=== PATIENT | female | born 1980 | race Caucasian/White ===

== ENCOUNTER 2020-10-18 17:19 | Emergency (ER) | payer OTHER ==
--- OUTSIDE RECORDS SUMMARY | 2020-10-18 17:22 | XMS REPORT | Continuity of Care Document ---
:1980 Author Organization [facility] t Address [address] [place] [address] Care Team Providers Name Role Phone RUPALI Attending Clinician Unavailable CHITO Attending Clinician Unavailable Rohan BRAN, M Attending Clinician Bria PAC, Judy Attending Clinician Rosalba BRYSON Attending Clinician Lab, Fam Pob I Attending Clinician Unavailable Only, Test Attending Clinician Unavailable Doctor Unassigned, Name Attending Clinician Unavailable Fahed Attending Clinician DR ALYCE Attending Clinician Unavailable DR MARY GRACE Attending Clinician Unavailable Rosalba BRYSON Admitting Clinician Fahed Admitting Clinician DR ALYCE Admitting Clinician Unavailable DR MARY GRACE Admitting Clinician Unavailable Payers Payer Name Policy Type Policy Number Effective Date Expiration Date [facility] [id number] 2020 HEALTH PLAN 00:00:00 Problems Condition Condition Condition Status Onset Resolution Last Treating Co mments Source Name Details Category Date Date Treatment Clinician Date Diabetes Problem Active 2019-12-02 Mem oria mellitus 1- 04:02:00 l (disorder) Diabetes 00:00: Edmond hubbard mellitus 00 (disorder) Active 04/27/2019 Problem 12/02/2019 [facility] Leiomyoma, Problem Active 2019-12-02 M emoria no ICD-O 1- 04:02:00 l subtype 00:00: Facundo (morpholog Leiomyoma, 00 ic no ICD-O abnormalit subtype y) (morpholog ic abnormalit y) Active 9 Problem 0 [facility] Rheumatoid Problem Active 2019-12-02 M emoria arthritis 04-27 04:02:00 l (disorder) 00:00: Harjeet n Rheumatoid 00 arthritis (disorder) Active 04/27/2018 Problem 12/02/2019 [facility] Hypertensi Problem Active 2019-12-02 M emoria ve 04-27 04:02:00 l disorder, 00:00: [place]na systemic Hypertensi 00 arterial ve (disorder) disorder, systemic arterial (disorder) Active 04/27/2015 Problem 12/02/2019 [facility] Allergy - Problem Active 2019-12-02 Me moria specialty 04:02:00 l (qualifier Allergy Her garcia value) - specialty (qualifier value) Active Problem 12/02/2019 [facility] Asthma Problem Active 2019-12-02 Memor ia (disorder) 04:02:00 l Asthma Facundo (disorder) Active Problem 12/02/2019 [facility] Low back Problem Active 2019-12-02 Mem oria pain 04:02:00 l (disorder) Low back He rmann pain (disorder) Active Problem 12/02/2019 [facility] Secondary Problem Active 2016-02-20 Me moria amenorrhea 02:48:07 l [place]na Secondary amenorrhea Active Problem 02/20/2016 [facility] Encounter Problem Active 2016-02-20 Me moria for 02:48:07 l supervisio Harjeet n n of other Encounter normal for , supervisio first n of other trimester normal , first trimester Active Problem 02/20/2016 [facility] Methicilli Problem Resolve 2019-12-02 2019-12-02 Memoria n d 1- 04:02:00 04:02:00 l resistant 00:00: [place]na Staphyloco Methicilli 00 ccus n aureus resistant (organism) Staphyloco ccus aureus (organism) Resolved 04/27/2006 Problem 12/02/2019 right leg affected treated no recurrence [facility] History of Past Illness Condition Condition Condition Status Onset Resolution Last Treating Co mments Source Name Details Category Date Date Treatment Clinician Date Spondylosi Problem 2019-12-02 2019-12-02 Memoria s without 11-29 04:02:00 04:02:00 l myelopathy 17:00: Harjeet n or Spondylosi 00 radiculopa s without thy, myelopathy lumbar or region radiculopa thy, lumbar region 11/30/2019 12/02/2019 [facility] Allergies, Adverse Reactions, Alerts Allergy Allergy Status Severity Reaction(s) Onset Inactive Treating Comm ents Source Name Type Date Date Clinician naproxen naproxen Active August Loredo Social History Social Habit Start Date Stop Date Quantity Comments Source [place]? 2016-02-15 00:00:00 2016-02-15 Crow rial [place]na 00:00:00 Smoking Status Start Date Stop Date Source Social History 2019-10-30 19:19:07 2019-10-30 19:19:07 [facility] Medications Ordered Filled Start Stop Current Ordering Indication Dosage Frequency Signature Comments Components Source Medication Medication Date Date Medication? Clinician (SIG) Name Name [facility] No 300 mL, Memoria Medication 11-29 Soln-IV, l 20:59: IV, Once, first dose 11/30/19 15:59:00 CDT, stop date 11/30/19 15:59:00 CDT ketamine 2020-0 No 50 mg = 1 Crow michael 8-05 mL, l 19:18: Injection, Marianna 00 IV, Once, first dose 11/30/19 14:18:00 CDT, stop date 11/30/19 14:18:00 CDT midazolam 2020-0 No 1 mg = 1 Crow michael 8-05 mL, l 19:15: Injection, 00 IV, Once, first dose 11/30/19 14:15:00 CDT, stop date 11/30/19 14:15:00 CDT fentaNYL 2020-0 No 50 mcg = 1 Mem oria 8-05 mL, l 19:15: Injection, Marianna 00 IV, Once, first dose 11/30/19 14:15:00 CDT, stop date 11/30/19 14:15:00 CDT midazolam 2020-0 No 1 mg = 1 Crow michael 8-05 mL, l 19:11: Injection, Facundo 00 IV, Once, first dose 11/30/19 14:11:00 CDT, stop date 11/30/19 14:11:00 CDT fentaNYL 2020-0 No 50 mcg = 1 Mem oria 8-05 mL, l 19:11: Injection, IV, Once, first dose 11/30/19 14:11:00 CDT, stop date 11/30/19 14:11:00 CDT topiramate 2019-0 Yes 25 mg = 1 Me moria 25 MG Oral 8-05 caps, l Capsule 17:53: Oral, BID, 0 Refill(s), migraine LR 1,000 mL 2020-0 No 1,000 mL, M emoria 8-05 IV, 30 l 17:26: mL/hr, start date 11/30/19 12:26:00 CDT, 2.5, m2 Lidocaine 2020-0 No 0.2 mL, Memor ia 2% 0.2 mL 8 Injection, l IV Start 17:26: Subcutaneo [facility]] , Once PRN for other (see comment), first dose 11/30/19 12:26:00 CDT baclofen 20 Yes 20 mg = 1 M emoria mg oral 8 tabs, l tablet 17:25: Oral, BID, PAIN Misc 2020-0 No 900 mL, Memoria Medication 11-01 Soln-IV, l 19:34: IV, Once, first dose 11/02/19 14:34:00 CDT, stop date 11/02/19 14:34:00 CDT LR 1,000 mL 2020-0 No 1,000 mL, M emoria 7-08 IV, 75 l 19:10: mL/hr, start date 11/02/19 14:10:00 CDT, 2.5, m2 Saline Lock 2019-0 No 10 mL, Crow michael Flush 08 Soln, IV l 19:10: Push, As Indicated PRN for flush, first dose 11/02/19 14:10:00 CDT Dilaudid 2020-0 No 0.5 mg = Memor ia -08 0.5 mL, l 19:10: Injection, IV Push, q10min PRN for pain severe (7-10), first dose 11/02/19 14:10:00 CDT ketamine 2020-0 No 25 mg = Memori a 7-08 0.5 mL, l 18:53: Injection, Facundo 00 IV, Once, first dose 11/02/19 13:53:00 CDT, stop date 11/02/19 13:53:00 CDT ketamine 2020-0 No 25 mg = Memori a 7-08 0.5 mL, l 18:50: Injection, Marianna 00 IV, Once, first dose 11/02/19 13:50:00 CDT, stop date 11/02/19 13:50:00 CDT fentaNYL 2020-0 No 50 mcg = 1 Mem oria 7-08 mL, l 18:45: Injection, Marianna 00 IV, Once, first dose 11/02/19 13:45:00 CDT, stop date 11/02/19 13:45:00 CDT ketamine 2020-0 No 25 mg = Memori a 7-08 0.5 mL, l 18:44: Injection, Marianna 00 IV, Once, first dose 11/02/19 13:44:00 CDT, stop date 11/02/19 13:44:00 CDT ketamine 2020-0 No 25 mg = Memori a 7-08 0.5 mL, l 18:39: Injection, Facundo 00 IV, Once, first dose 11/02/19 13:39:00 CDT, stop date 11/02/19 13:39:00 CDT fentaNYL 2020-0 No 50 mcg = 1 Mem oria 7-08 mL, l 18:38: Injection, Marianna 00 IV, Once, first dose 11/02/19 13:38:00 CDT, stop date 11/02/19 13:38:00 CDT LR 1,000 mL 2020-0 No 1,000 mL, M emoria 7-08 IV, 30 l 17:03: mL/hr, Marianna 00 start date 11/02/19 12:03:00 CDT, 2.5, m2 Lidocaine 2020-0 No 0.2 mL, Memor ia 2% 0.2 mL 11-01 Injection, l IV Start 17:03: Subcutaneo Her garcia [[facility]] 00 us, Once PRN for other (see comment), first dose 11/02/19 12:03:00 CDT 0.4 ML 2020-0 Yes 40 mg, Memoria adalimumab 7-05 Subcutaneo l 100 MG/ML 19:17: us, q2wk, Her radha Auto-Inject 00 last dose or [Humira] thursday 73-2020, 0 Refill(s), RA Acetaminoph 2020-0 Yes 1 tabs, Mem oria en 300 MG / 7-05 Oral, As l Codeine 19:17: Indicated, Herm nathan Phosphate 00 PRN pain, 30 MG Oral 0 Tablet Refill(s), pain MetFORMIN 2020-0 Yes 500 mg = 1 Me moria (Eqv-Glucop 7-05 tabs, l irving XR) 19:16: Oral, BID, Her radha 500 mg oral 00 0 tablet, Refill(s), extended DM release amitriptyli 2020-0 Yes 150 mg = 1 Memoria ne 150 mg 7-05 tabs, l oral tablet 19:16: Oral, qHS, Marianna 00 0 Refill(s), nerve pain methotrexat 2020-0 Yes 2.5 mg = 1 Memoria e 2.5 mg 7-05 tabs, l oral tablet 19:16: Oral, Kathy nn 00 qWeek, 0 Refill(s), RA meloxicam 2020-0 Yes See Memoria 15 MG Oral 7-05 Instructio l Tablet 19:16: ns, 0 Facundo 00 Refill(s), pain DULoxetine 2020-0 Yes 60 mg = 1 Me moria 60 mg oral 7-05 caps, l delayed 19:16: Oral, Facundo release 00 Daily, 0 capsule Refill(s), depression /nerve pain cetirizine 2020-0 Yes 10 mg = 1 Me moria 10 mg oral 7-05 tabs, l tablet 19:16: Oral, Facundo 00 Daily, 0 Refill(s), Allergy tiZANidine 2020-0 No 4 mg = 1 Mem oria 4 mg oral 7-05 tabs, l tablet 19:16: Oral, TID, Kathy nn 00 0 Refill(s), muscle pain Hydrochloro 2020-0 Yes 1 tabs, Mem oria thiazide 7-05 Oral, l 12.5 MG / 19:15: Daily, 0 Herm nathan valsartan 00 Refill(s), 320 MG Oral HTN Tablet 24 HR 2020-0 Yes 60 mg = 1 Memoria Propranolol 7-05 caps, l Hydrochlori 19:15: Oral, Kathy nn de 60 MG 00 Daily, 0 Extended Refill(s), Release HTN Capsule Procardia 2016-1 Yes Sonia 1 tablet Memoria XL 0-25 Olude l 00:00: Facundo 00 Vital Signs Vital Name Observation Time Observation Value Comments Source Respitory Rate 2019-11-30 20:04:00 Memori al [place] Systolic (mm Hg) 2019-11-30 20:04:00 Crow rial Marianna Diastolic (mm Hg) 2019-11-30 20:04:00 Mem orial Facundo Heart Rate 2019-11-30 19:40:00 [facility] [place] Respitory Rate 2019-11-30 19:40:00 Memori al [place] Systolic (mm Hg) 2019-11-30 19:40:00 Crow rial Facundo Diastolic (mm Hg) 2019-11-30 19:40:00 Mem orial [place] Heart Rate 2019-11-30 19:30:00 [facility] [place] Respitory Rate 2019-11-30 19:30:00 Memori al [place] Systolic (mm Hg) 2019-11-30 19:30:00 Crow rial Facundo Diastolic (mm Hg) 2019-11-30 19:30:00 Mem orial [place] Temperature Oral (F) 2019-11-30 19:20:00 36.3 [facility] [place] Heart Rate 2019-11-30 19:20:00 [facility] Fac[place] Height 2019-11-30 17:42:00 162 cm [facility] Facundo Height 2019-11-27 17:23:00 162 cm [facility] Facundo Respitory Rate 2019-11-02 19:39:00 Memori al [place] Systolic (mm Hg) 2019-11-02 19:39:00 Crow rial Facundo Diastolic (mm Hg) 2019-11-02 19:39:00 Mem orial [place] Systolic (mm Hg) 2019-11-02 19:10:00 Crow rial Facundo Diastolic (mm Hg) 2019-11-02 19:10:00 Mem orial [place] Respitory Rate 2019-11-02 19:10:00 Memori al [place]undo Respitory Rate 2019-11-02 19:00:00 Memori al [place] Systolic (mm Hg) 2019-11-02 19:00:00 Crow rial Facundo Diastolic (mm Hg) 2019-11-02 19:00:00 Mem orial Facundo Temperature Oral (F) 2019-11-02 18:50:00 37 [facility] [place] Temperature Oral (F) 2019-11-02 17:14:00 37 [facility] [place] Height 2019-11-02 17:14:00 162 cm [facility] [place] Height 2019-10-30 19:11:00 162 cm [facility] Facundo Procedures Procedure Date / Time Performed Performing Clinician Sage e DESTRUCTION BY NEUROLYTIC 2019-11-30 19:19:00 Me morial Marianna AGENT PARAVERTEBRAL FACET JT NERVE W/ IMAGE LUMB/SACRAL EACH [id number] (Left)<sup>1</sup> DESTRUCTION BY NEUROLYTIC 2019-11-30 19:19:00 Me morial Marianna AGT PARARVERT FACET JT W/IMAGE LUM/SAC SINGLE JT [id number] (Left)<sup>2</sup> DESTRUCTION BY NEUROLYTIC 2019-11-02 18:45:00 Me morial Facundo AGENT PARAVERTEBRAL FACET JT NERVE W/ IMAGE LUMB/SACRAL EACH [id number] (Right)<sup>1</sup> DESTRUCTION BY NEUROLYTIC 2019-11-02 18:45:00 Me morial Facundo AGT PARARVERT FACET JT W/IMAGE LUM/SAC SINGLE JT [id number] (Right)<sup>2</sup> [place] 2015-04-27 00:00:00 [facility] delivery 2014-04-27 06:00:00 [facility] Encounters Start End Encounter Admission Attending Care Care Encounter Source Date/Time Date/Time Type Type Clinicians Facility Department ID 2020-09-27 Outpatient [facility] [id number] [place] 14:34:02 [facility] 2020-09-17 Outpatient [facility] [id number] [place] 13:15:59 [facility] 2020-09-01 Outpatient [facility] [id number] [place] 03:27:24 [facility] 2020-09-17 2020-09-17 Office KULWINDER Mcnamara [id number] 12:07:21 13:15:56 Visit Maria Isabel [address] [id number] 2020-04-05 2020-04-05 Transition Theresa Madrigal [id number] 00:00:00 00:00:00 of Care Antonia Perkins [id number] [place] [id number] 2020-03-27 2020-04-04 [facility] [id number] 18:33:00 12:25:00 Encounter Ezzo, [facility] [id number] [place] [id number] [place] [id number] [place] [address] ([facility]) 2020-03-27 2020-03-27 Laboratory Lab, [facility] [id number] 17:56:51 18:16:51 Only Fam Pob I Health [id number] [place] [id number] [facility] [id number] nal 044 Office [address] One 2020-03-05 2020-03-05 Laboratory Only, [facility] [id number] 14:52:33 15:07:33 Only Test [place] [id number] [place] [id number] Nathalie [id number] 2020-03-05 2020-03-05 Orders Doctor MICK [id number] 00:00:00 00:00:00 Only Unassigned, MAT [id number] [place] [facility] [id number] 2019-11-30 2019-11-30 Outpatient Fahed, [id number] 11:55:34 15:10:00 [facility] 8 2019-11-02 2019-11-02 Outpatient Fahed, [id number] 12:03:26 14:46:00 Fidencio 8 2019-09-29 2019-09-29 Outpatient Nasra MEAD [facility] [id number] [facility] [place] 13:58:00 23:59:00 , RODOLFO [facility] 2019-09-26 2019-09-26 Outpatient MARY GRACE [facility] [id number] [place] 14:33:00 23:59:00 JAME Weinberg [facility] 2016-02-18 2016-02-18 [id number] 14:57:00 14:57:00 [facility] Health/ C. C. Lucero Miguel MD, PhD, MD, PhD, PA PA 2016-02-11 2016-02-11 [facility] 30 [facility] 12:40:00 12:40:00 [facility]/ Health/ C. C. Lucero Miguel MD, PhD, MD, PhD, PA PA 2016-02-06 2016-02-06 Outpatient [facility] 1889 04 eClinic 12:56:00 12:56:00 [facility]/ Health/ C. C. Lucero Miguel MD, PhD, MD, PhD, PA PA Results Test Description Test Time Test Comments Results Result Comments Source LABORATORY 2019-11-30 109 [facility] 18:02:00 [place] LABORATORY 2019-11-30 Negative, [facility] 17:28:00 Control Facundo Present (11/30/19 12:28 PM) LABORATORY 2019-11-02 Negative, [facility] 17:36:00 Control [place] Present (11/02/19 12:36 PM) LABORATORY 2019-11-02 90 [facility] 17:36:00 Facundo
[2020-10-18 20:40] LABS: Urine Blood 2+ (Negative); Urine Glucose Negative (Negative); Urine Protein Negative (Negative); Urine Specific Gravity 1.015 (1.005-1.030)
[2020-10-18 20:51] LABS: Basophils % 0.4 % (0-1.3); Hematocrit 37.2 % (36.0-45.0); Lymphocytes % 22.9 % (15.3-44.8); RBC Red Blood Cell Count 3.97 M/uL (3.86-4.86)
[2020-10-18] MEDS ORDERED: FOLIC ACID 5 MG/ML VIAL ONE ×3 (20:55→21:13)
[2020-10-18] MEDS ORDERED: NA CHLORIDE 0.9% 0 ML ONE (20:55)
[2020-10-18] MEDS ORDERED: NA CHLORIDE 0.9% 500 ML ONE ×2 (20:58→21:13)
[2020-10-18] MEDS ORDERED: ASPIRIN 81 MG CHEWABLE TABLET ONE (21:05)
[2020-10-18] MEDS ORDERED: CEFTRIAXONE/SWI 1gm 1 GM/10 ML SYR ONE (21:06)
--- NOTE | 2020-10-18 21:07 | RAD REPORT ---
EXAM DESCRIPTION: CT - CTHCSPWOC - 10/18/2020 8:49 pm CLINICAL HISTORY: NUMBNESS/TINGLING COMPARISON: No comparisons TECHNIQUE: Axial 5 mm thick images of the head were obtained. Axial 2 mm thick images of the cervic al spine were obtained with sagittal and coronal reconstruction images generated and reviewed. All CT scans are performed using dose optimization technique as appropriate and may include automated exposure control or mA/KV adjustment according to patient size. FINDINGS: No intracranial hemorrhage, mass, edema or acute intracranial finding. No suspicion for ac abbie infarction. No extra-axial fluid collections. Mastoid air cells and paranasal sinuses are clear. No globe or orbit abnormality seen. Cervical body height and alignment are normal. No disk space narrowing. No fracture or acute bony abn ormality. Central canal detail is inherently limited. No paraspinal mass or hematoma. IMPRESSION: Negative CT head examination for acute or significant finding. Negative CT cervical spine examination for acute or significant finding.
[2020-10-18 21:13] LABS: Albumin 3.6 g/dL (3.4-5.0); Bilirubin Total 0.3 mg/dL (0.2-1.0); Potassium 3.5 mmol/L (3.5-5.1); Protein, Total 8.1 g/dL (6.4-8.2)
[2020-10-18] MEDS ORDERED: LITHIUM CARBONATE 300 MG TAB ONE (21:15)
[2020-10-18 21:18] LABS: Urine Specific Gravity/Preg 1.015 (1.005-1.030)
[2020-10-18 21:18] LABS: Urine Bacteria 20-50 /HPF (<20); Urine Mucus 1+ /HPF (NONE SEEN)
--- NOTE | 2020-10-18 21:43 | ER ---
Nurse's Notes [facility] Name: Ellen Hendricks Age: 40 yrs Sex: Female : 1980 Arrival Date: 10/18/2020 Time: 17:22 Bed 4 Private MD: Diagnosis: Type 2 diabetes mellitus;Fibromyalgia;Obesity, unspecified;Urinary tract infection, site not specified Presentation: 10/18 17:34 Chief complaint: Patient states: "I hae a little bit of numbing becomes of my RA and jd3 fibromyalgia and I called my doctor yesterday because 3 days ago I had this numbing from my toes to my knee on the front of my leg that has not gone away.". Coronavirus screen: At this time, the client does not indicate any symptoms associated with coronavirus-19. Ebola Screen: Patient negative for fever greater than or equal to 101.5 degrees Fahrenheit, and additional compatible Ebola Virus Disease symptoms. Initial Sepsis Screen: Does the patient meet any 2 criteria? No. Patient's initial sepsis screen is negative. Does the patient have a suspected source of infection? No. Patient's initial sepsis screen is negative. Risk Assessment: Do you want to hurt yourself or someone else? Patient reports no desire to harm self or others. Onset of symptoms was October 15, 2020. 17:34 Method Of Arrival: Ambulatory [facility] 17:34 Acuity: PARISH 3 jd3 Triage Assessment: 19:37 General: Appears in no apparent distress. Behavior is calm, cooperative. Pain: Denies ak2 pain. TRANSFER KNITTER: 17:38 LMP N/A - IUD jd3 Historical: - Allergies: 17:38 Naproxen; jd3 - PMHx: 17:38 Hypertension; High Cholesterol; Fibromyalgia; RA; Diabetes - NIDDM; jd3 - PSHx: 17:38 ; leap pracedure; Tonsillectomy; Cholecystectomy; back; jd3 - Immunization history:: Adult Immunizations up to date. - Social history:: Smoking status: Patient/guardian denies using tobacco, the patient reports quitting approximately 6 years ago. - Family history:: not pertinent. Screenin:35 VAN Screening: Arm Drift: Patient shows no arm weakness. Patient is VAN negative. jd3 19:37 Abuse screen: Denies threats or abuse. Denies injuries from another. Nutritional ak2 screening: No deficits noted. Tuberculosis screening: No symptoms or risk factors identified. Fall Risk None identified. Assessment: 19:37 General: Appears in no apparent distress. Behavior is calm, cooperative. ak2 Cardiovascular: No deficits noted. Respiratory: No deficits noted. 21:24 Reassessment: Patient and/or family updated on plan of care and expected duration. Pain ea level reassessed. Patient is alert, oriented x 3, equal unlabored respirations, skin warm/dry/pink. Vital Signs: 17:38 BP 115 / 65; Pulse 87; Resp 17 S; Temp 98.0(TE); Pulse Ox 98% on R/A; Weight 190.51 kg jd3 (R); Height 5 ft. 4 in. (162.56 cm) (R); Pain 7/10; 21:55 BP 120 / 60; Pulse 80; Resp 16; Pulse Ox 98% ; ea 17:38 Body Mass Index 72.09 (190.51 kg, 162.56 cm) jd3 NIH Stroke Scale Scores: 20:54 NIHSS Score: 1 [facility] ED Course: 17:22 Patient arrived in ED. ds1 17:35 Triage completed. jd3 17:39 Arm band placed on. jd3 19:32 Tiara Perdomo, RN is Primary Nurse. ea 19:36 Francis Sandoval MD is Attending Physician. itz 19:37 Patient has correct armband on for positive identification. ak2 19:37 No provider procedures requiring assistance completed. ak2 20:49 CT Head C Spine In Process Unspecified. EDMS 21:24 Inserted saline lock: 20 gauge in left antecubital area, using aseptic technique. ea 21:42 Rich Gonzalez MD is Referral Physician. itz 22:07 IV discontinued, intact, bleeding controlled, No redness/swelling at site. Pressure ea dressing applied. Administered Medications: 20:44 Drug: NS 0.9% 500 ml Route: IV; Rate: bolus; Site: left antecubital; ak2 22:00 Follow up: Response: No adverse reaction; IV Status: Completed infusion; IV Intake: ea 500ml 20:44 Drug: foLIC Acid 1 mg Route: IVPB; Site: left antecubital; ak2 22:00 Follow up: IV Status: Completed infusion ea 21:10 Drug: Rocephin (cefTRIAXone) 1 grams Route: IV; Rate: per protocol; Site: left ea antecubital; 22:00 Follow up: Response: No adverse reaction; IV Status: Completed infusion; IV Intake: 10mlea 22:00 Drug: Aspirin 81 mg Route: PO; ea 22:01 Follow up: Response: Medication administered at discharge. ea Intake: 22:00 IV: 500ml; Total: 500ml. ea 22:00 IV: 10ml; Total: 510ml. ea Outcome: 21:42 Discharge ordered by . itz 22:07 Condition: stable ea 22:08 Discharged to home ambulatory, with family. ea 22:08 Discharge instructions given to patient, Instructed on discharge instructions, follow up and referral plans. medication usage, Demonstrated understanding of instructions, follow-up care, medications, Prescriptions given X 3. 22:09 Patient left the ED. ak2 NIH Stroke Scale - NIH Stroke Score Date: 10/18/2020 Time: 20:54 Total Score = 1 1a. Level of Consciousness (LOC) - 0(Alert) 1b. Level of Consciousness (LOC) (Year \\T\\ Age) - 0(Both) 1c. LOC Commands (Open \\T\\ Closes Eyes/Electric Arc Furnace Operator) - 0(Both) 2. Best Gaze (Lateral Gaze Paresis) - 0(Normal) 3. Visual Field Loss - 0(No visual loss) 4. Facial Palsy - 0(Normal) 5a. Left Arm: Motor (10-second hold) - 0(No drift) 5b. Right Arm: Motor (10-second hold) - 0(No drift) 6a. Left Leg: Motor (5-second hold - always test supine) - 0(No drift) 6b. Right Leg: Motor (5-second hold - always test supine) - 0(No drift) 7. Limb Ataxia (finger/nose \\T\\ heel/rich - test with eyes open) - 0(Absent) 8. Sensory Loss (pinprick arms/legs/face) - 1(Mild to moderate loss) 9. Best Language: Aphasia (description/naming/reading) - 0(No aphasia) 10. Dysarthria (speech clarity - read or repeat words) - 0(Normal) 11. Extinction and Inattention (visual/tactile/auditory/spatial/personal) - 0(No abnormality) Initials: itz Signatures: Dispatcher [employer] EDFrancis Madrigal MD MD itz [place], Kortney ds1 Tiara Perdomo, RN RN Carson Negron RN RN Sourav Kamara2 Corrections: (The following items were deleted from the chart) 18:29 18:28 VAN Screening: Arm Drift: Patient shows no arm weakness. Patient is VAN jd3 negative. jd3
--- NOTE | 2020-10-18 21:43 | EDPHYS ---
Physician Documentation [facility] Name: Ellen Hendricks Age: 40 yrs Sex: Female : 1980 Arrival Date: 10/18/2020 Time: 17:22 Bed 4 Private MD: ED Physician Francis Sandoval HPI: 10/18 20:26 This 40 yrs old Female presents to ER via Ambulatory with complaints of Arm \T\ itz Leg Numbness. 20:26 The patient's problem is reported as paresthesias, in left lower extremity. Onset: The itz symptoms/episode began/occurred 3 day(s) ago. Duration: The episodes are intermittent. Context: the episode(s) was witnessed, by no one. The symptoms are alleviated by nothing. The symptoms are aggravated by nothing. Associated signs and symptoms: Pertinent positives: None. Pertinent negatives: None. Associated signs and symptoms: Pertinent positives: tingling. Severity of symptoms: At their worst the symptoms were mild 3 day(s) ago, in the emergency department the symptoms have improved moderately. 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 - Social history:: Smoking status: Patient/guardian denies using tobacco, the patient reports quitting approximately 6 years ago. - Family history:: not pertinent. ROS: 20:26 Constitutional: Negative for fever, chills, and weight loss, Eyes: Negative for injury, itz pain, redness, and discharge, ENT: Negative for injury, pain, and discharge, Neck: Negative for injury, pain, and swelling, Cardiovascular: Negative for chest pain, palpitations, and edema, Respiratory: Negative for shortness of breath, cough, wheezing, and pleuritic chest pain, Abdomen/GI: Negative for abdominal pain, nausea, vomiting, diarrhea, and constipation, Back: Negative for injury and pain, : Negative for injury, bleeding, discharge, and swelling, MS/Extremity: Negative for injury and deformity, Skin: Negative for injury, rash, and discoloration, Neuro: Negative for headache, weakness, numbness, tingling, and seizure, Psych: Negative for depression, anxiety, suicide ideation, homicidal ideation, and hallucinations, Allergy/Immunology: Negative for hives, rash, and allergies, Endocrine: Negative for neck swelling, polydipsia, polyuria, polyphagia, and marked weight changes, Hematologic/Lymphatic: Negative for swollen nodes, abnormal bleeding, and unusual bruising. Exam: 20:26 Radiologist reports: neg itz 20:26 Constitutional: This is a well developed, well nourished patient who is awake, alert, and in no acute distress. Head/Face: Normocephalic, atraumatic. Eyes: Pupils equal round and reactive to light, extra-ocular motions intact. Lids and lashes normal. Conjunctiva and sclera are non-icteric and not injected. Cornea within normal limits. Periorbital areas with no swelling, redness, or edema. ENT: Nares patent. No nasal discharge, no septal abnormalities noted. Tympanic membranes are normal and external auditory canals are clear. Oropharynx with no redness, swelling, or masses, exudates, or evidence of obstruction, uvula midline. Mucous membranes moist. Neck: Trachea midline, no thyromegaly or masses palpated, and no cervical lymphadenopathy. Supple, full range of motion without nuchal rigidity, or vertebral point tenderness. No Meningismus. Chest/axilla: Normal chest wall appearance and motion. Nontender with no deformity. No lesions are appreciated. Cardiovascular: Regular rate and rhythm with a normal S1 and S2. No gallops, murmurs, or rubs. Normal PMI, no JVD. No pulse deficits. Respiratory: Lungs have equal breath sounds bilaterally, clear to auscultation and percussion. No rales, rhonchi or wheezes noted. No increased work of breathing, no retractions or nasal flaring. Abdomen/GI: Soft, non-tender, with normal bowel sounds. No distension or tympany. No guarding or rebound. No evidence of tenderness throughout. Back: No spinal tenderness. No costovertebral tenderness. Full range of motion. Skin: Warm, dry with normal turgor. Normal color with no rashes, no lesions, and no evidence of cellulitis. MS/ Extremity: Pulses equal, no cyanosis. Neurovascular intact. Full, normal range of motion. Psych: Awake, alert, with orientation to person, place and time. Behavior, mood, and affect are within normal limits. 20:26 Neuro: Orientation: is normal, appropriate for stated age, no acute changes, Mentation: is normal, appropriate for stated age, no acute changes, Memory: is normal, appropriate for stated age, no acute changes, Cranial nerves: grossly normal, is grossly normal based on the patient's age, no acute changes, Cerebellar function: Motor: Sensation: numbness, that is mild, of the lateral aspect of left calf, left lateral ankle and lateral aspect of left foot, Gait: not tested. Deep tendon reflexes are 2+ (normal) in the bilateral brachioradialis, bicep, tricep and patellar and Achilles tendons, seizure activity, is not displayed by the patient. 21:57 ECG was reviewed by the Attending Physician. [facility] Vital Signs: 17:38 BP 115 / 65; Pulse 87; Resp 17 S; Temp 98.0(TE); Pulse Ox 98% on R/A; Weight 190.51 kg jd3 (R); Height 5 ft. 4 in. (162.56 cm) (R); Pain 7/10; 21:55 BP 120 / 60; Pulse 80; Resp 16; Pulse Ox 98% ; ea 17:38 Body Mass Index 72.09 (190.51 kg, 162.56 cm) jd3 NIH Stroke Scale Scores: 20:54 NIHSS Score: 1 itz MDM: 19:36 Patient medically screened. itz 20:54 Differential diagnosis: CVA, TIA, metabolic disorder, drug effects. Data reviewed: [facility] vital signs, nurses notes, lab test result(s), EKG, radiologic studies, CT scan. Data interpreted: clinical research monitor: rate is 87 beats/min, rhythm is regular, Pulse oximetry: on room air is 87 %. Test interpretation: by ED physician or midlevel provider: ECG, plain radiologic studies. Counseling: I had a detailed discussion with the patient and/or guardian regarding: the historical points, exam findings, and any diagnostic results supporting the discharge/admit diagnosis, lab results, radiology results, the need for outpatient follow up, for definitive care, a family practitioner, a neurologist. 10/18 20:23 Order name: CBC with Diff; Complete Time: 21:41 [facility] 10/18 20:23 Order name: Comprehensive Metabolic Panel; Complete Time: 21:41 [facility] 10/18 20:40 Order name: Urine Dipstick-Ancillary; Complete Time: 20:56 [facility] 10/18 20:42 Order name: Urine Culture 10/18 20:42 Order name: Urine Microscopic Only 10/18 20:43 Order name: Urine Culture [facility] 10/18 20:23 Order name: CT Head C Spine; Complete Time: 21:41 [facility] 10/18 20:38 Order name: EKG; Complete Time: 20:39 [facility] 10/18 20:43 Order name: Urine Microscopic Only; Complete Time: 21:41 [facility] 10/18 20:53 Order name: Urine --Ancillary (enter results); Complete Time: 21:41 [facility] 10/18 20:23 Order name: Urine Dipstick-Ancillary (obtain specimen); Complete Time: 20:41 [facility] 10/18 20:23 Order name: Urine Test (obtain specimen); Complete Time: 20:41 [facility] 10/18 20:38 Order name: EKG - Nurse/Tech; Complete Time: 21:24 [facility] EC:57 Rate is 74 beats/min. Rhythm is regular. QRS Hines is Normal. MT interval is normal. QRS itz interval is normal. QT interval is normal. No Q waves. T waves are Normal. No ST changes noted. Clinical impression: NSR w/ Non-specific ST/T Changes and No evidence of ischemia. Interpreted by me. Reviewed by me. Administered Medications: 20:44 Drug: NS 0.9% 500 ml Route: IV; Rate: bolus; Site: left antecubital; ak2 22:00 Follow up: Response: No adverse reaction; IV Status: Completed infusion; IV Intake: ea 500ml 20:44 Drug: foLIC Acid 1 mg Route: IVPB; Site: left antecubital; ak2 22:00 Follow up: IV Status: Completed infusion ea 21:10 Drug: Rocephin (cefTRIAXone) 1 grams Route: IV; Rate: per protocol; Site: left ea antecubital; 22:00 Follow up: Response: No adverse reaction; IV Status: Completed infusion; IV Intake: 10mlea 22:00 Drug: Aspirin 81 mg Route: PO; ea 22:01 Follow up: Response: Medication administered at discharge. ea Disposition: 10/18/20 21:42 Discharged to Home. Impression: Type 2 diabetes mellitus, Fibromyalgia, Obesity, unspecified, Urinary tract infection, site not specified. - Condition is Stable. - Discharge Instructions: Type 2 Diabetes Mellitus, Diagnosis, Adult, Myofascial Pain Syndrome and Fibromyalgia, Musculoskeletal Pain, Urinary Tract Infection, Adult, Urinary Tract Infection, Adult, [id number], Type 2 Diabetes Mellitus, Self Care, Adult, Type 2 Diabetes Mellitus, Self Care, Adult, [id number], Aspirin and Your Heart. - Prescriptions for Folic Acid 1 mg Oral Tablet - take 1 tablet by ORAL route once daily; 30 tablet. Medrol (Dar) 4 mg Oral Tablets, Dose Pack - take 1 tablet by ORAL route as directed - follow package instructions; 1 packet. Cipro 250 mg Oral Tablet - take 1 tablet by ORAL route every 12 hours; 14 tablet. - Medication Reconciliation Form, Thank You Letter, Antibiotic Education, Prescription Opioid Use form. - Follow up: Private Physician; When: 2 - 3 days; Reason: Recheck today's complaints, Continuance of care, Re-evaluation by your physician. Follow up: Rich Gonzalez; When: 2 - 3 days; Reason: Recheck today's complaints, Re-evaluation by your physician. - Problem is new. - Symptoms have improved. NIH Stroke Scale - NIH Stroke Score Date: 10/18/2020 Time: 20:54 Total Score = 1 1a. Level of Consciousness (LOC) - 0(Alert) 1b. Level of Consciousness (LOC) (Year \T\ Age) - 0(Both) 1c. LOC Commands (Open \T\ Closes Eyes/Sr. Pricing Analyst) - 0(Both) 2. Best Gaze (Lateral Gaze Paresis) - 0(Normal) 3. Visual Field Loss - 0(No visual loss) 4. Facial Palsy - 0(Normal) 5a. Left Arm: Motor (10-second hold) - 0(No drift) 5b. Right Arm: Motor (10-second hold) - 0(No drift) 6a. Left Leg: Motor (5-second hold - always test supine) - 0(No drift) 6b. Right Leg: Motor (5-second hold - always test supine) - 0(No drift) 7. Limb Ataxia (finger/nose \T\ heel/rich - test with eyes open) - 0(Absent) 8. Sensory Loss (pinprick arms/legs/face) - 1(Mild to moderate loss) 9. Best Language: Aphasia (description/naming/reading) - 0(No aphasia) 10. Dysarthria (speech clarity - read or repeat words) - 0(Normal) 11. Extinction and Inattention (visual/tactile/auditory/spatial/personal) - 0(No abnormality) Initials: itz Signatures: Dispatcher [employer] EDFrancis Madrigal MD MD cha Antunez, Elena, RN RN ea Davies, Jonathon, RN RN jd3 [place], Anthony ak2 Corrections: (The following items were deleted from the chart) 22:09 21:42 10/18/2020 21:42 Discharged to Home. Impression: Type 2 diabetes ak2 mellitus; Fibromyalgia; Obesity, unspecified; Urinary tract infection, site not specified. Condition is Stable. Discharge Instructions: Type 2 Diabetes Mellitus, Diagnosis, Adult, Myofascial Pain Syndrome and Fibromyalgia, Musculoskeletal Pain, Type 2 Diabetes Mellitus, Self Care, Adult, Type 2 Diabetes Mellitus, Self Care, Adult, [id number], Aspirin and Your Heart, Urinary Tract Infection, Adult, Urinary Tract Infection, Adult, [id number]. Prescriptions for Folic Acid 1 mg Oral Tablet - take 1 tablet by ORAL route once daily; 30 tablet, Medrol (Dar) 4 mg Oral Tablets, Dose Pack - take 1 tablet by ORAL route as directed - follow package instructions; 1 packet, Cipro 250 mg Oral Tablet - take 1 tablet by ORAL route every 12 hours; 14 tablet. and Forms are Medication Reconciliation Form, Thank You Letter, Antibiotic Education, Prescription Opioid Use. Follow up: Private Physician; When: 2 - 3 days; Reason: Recheck today's complaints, Continuance of care, Re-evaluation by your physician. Follow up: Rich Gonzalez; When: 2 - 3 days; Reason: Recheck today's complaints, Re-evaluation by your physician. Problem is new. Symptoms have improved. itz
[2020-10-18 23:06] VITALS: TEMP 98; O2SAT 98
[2020-10-18 23:07] VITALS: BP 120/60
--- NOTE | 2020-10-19 08:11 | EKG ---
Test Date: 2020-10-18 Test Time: 21:13:22 Recreation Instructor: LANDON MEASUREMENT RESULTS: Intervals: Rate: 74 WA: 156 QRSD: 96 QT: 378 QTc: 419 [place]: P: 32 WA: 156 QRS: -8 T: 10 INTERPRETIVE STATEMENTS: Normal sinus rhythm Moderate voltage criteria for LVH, may be normal variant Borderline ECG Compared to ECG 01/17/2019 15:41:35 Left ventricular hypertrophy now present Sinus tachycardia no longer present ST (T wave) deviation no longer present Electronically Signed On 10-19-20 08:09:35 CDT by Sid Rubin
== END 2020-10-18 22:09 | disposition home or self-care (01) ==
LOC: ER 17:19
DX: M79.7 Fibromyalgia (principal); N39.0 Urinary tract infection, site not specified; E11.9 Type 2 diabetes mellitus without complications; E66.9 Obesity, unspecified; I10 Essential (primary) hypertension; Z88.6 Allergy status to analgesic agent
CPT/HCPCS: 93005; 87088; 85025; 87086; 36415; 81025; 87077; 87186; 80053; 70450; 72125; J0696; J7040 ×2; 81003; 81015